=== PATIENT | female | born 1970 | race African-American/Black ===

== ENCOUNTER 2023-08-25 16:37 | Emergency (ER) | payer OTHER ==
[~2023-08-25] VITALS: Ht 157.5 cm; Wt 62.1 kg
[2023-08-25 16:40] VITALS: BP 117/84; TEMP 98.4
[2023-08-25 16:56] LABS: PLATELET COUNT 180 K/uL (152-353)
[2023-08-25 17:01] LABS: POTASSIUM 3.9 mmol/L (3.6-5.2)
[2023-08-25] MEDS ORDERED: CEFTRIAXONE SODIUM 1,000 MG INJ IM ONE (17:07)
[2023-08-25] MEDS ORDERED: CEFTRIAXONE SODIUM 1,000 MG IV ONE (17:09)
[2023-08-25] MEDS ORDERED: LIDOCAINE MPF 1% 5ML ONE (17:10)
[2023-08-25] MEDS ORDERED: ALPR0.2566 PEG (19:51)
[2023-08-25] MEDS ORDERED: LIPITOR10 MG PEG (19:53)
[2023-08-25] MEDS ORDERED: DIPH12.553 PEG (19:55)
[2023-08-25] MEDS ORDERED: BUSPIRONE HYDR7.5 MG PEG (19:56)
[2023-08-25] MEDS ORDERED: CRANBERRY450 MG PEG (19:57)
[2023-08-25] MEDS ORDERED: FAMOTIDINE40 MG/5 ML PEG (19:59)
[2023-08-25] MEDS ORDERED: FLUOXETINE40 MG PEG (20:01)
[2023-08-25] MEDS ORDERED: GEMTESA75 MG PEG (20:04)
[2023-08-25] MEDS ORDERED: [UNRECOGNIZED DRUG - OTHER] OPTH (20:06)
[2023-08-25] MEDS ORDERED: LATUDA80 MG PEG (20:07)
[2023-08-25] MEDS ORDERED: MULTIVITAMI1 PEG (20:08)
[2023-08-25] MEDS ORDERED: NALTREXONE50 MG PEG (20:09)
[2023-08-25] MEDS ORDERED: POTASSIU PEG (20:11)
[2023-08-25] MEDS ORDERED: RISP0.5T2 PEG (20:13)
[2023-08-25] MEDS ORDERED: RISP1TAB PEG (20:14)
[2023-08-25] MEDS ORDERED: TRAZ100T PEG (20:15)
[2023-08-25] MEDS ORDERED: VITAMIN D325 MCG PEG (20:17)
[2023-08-27] MEDS ORDERED: JEVITY 1.5 CAL PEG (10:52)
[2023-08-31] MEDS ORDERED: CEFD300C2 PO (23:34)
[2023-08-31] MEDS ORDERED: Atorvastatin Calcium PEG (23:34)
[2023-08-31] MEDS ORDERED: ESCI10TA PEG (23:35)
[2023-08-31] MEDS ORDERED: TRAZ50TA36 PO (23:36)
[2023-08-31] MEDS ORDERED: LORA0.5T17 PEG (23:36)
[2023-08-31] MEDS ORDERED: OLANZAPINE5 MG PO (23:36)
[2023-08-31] MEDS ORDERED: LATA0.00 OPTH (23:37)
[2023-08-31] MEDS ORDERED: FAMOTIDINE20 MG PO (23:37)
== END 2023-08-25 17:18 | disposition still patient (30) ==
LOC: ED 16:37
PROVIDERS: Internal Medicine Endocrinology, Diabetes & Metabolism
DX: N39.0 Urinary tract infection, site not specified (principal); Z02.79 Encounter for issue of other medical certificate
CPT/HCPCS: 80053; 81000; 85027; 87077; 87086; 87088; 87186; 93005; 96372; 99283; J0696